=== PATIENT | male | born 1965 | race African-American/Black ===

== ENCOUNTER 2017-06-15 14:35 | Emergency (ER) | payer BC, OTHER ==
[2017-06-15] MEDS ORDERED: methylPREDNISolone Sod Succ/PF 125 MG/2 ML VIAL ONE (15:04)
[2017-06-15] MEDS ORDERED: Diazepam 5 MG TAB ONE (15:05)
[2017-06-15] MEDS ORDERED: Morphine 4 MG/ML VIAL ONE ×2 (15:05→16:22)
[2017-06-15] MEDS ORDERED: HYDROcodone/Acetaminophen 10/325 mg Tablet ONE (17:38)
== END 2017-06-15 18:02 | disposition home or self-care (01) ==
LOC: ERS 14:35
DX: M54.41 Lumbago with sciatica, right side (principal); I10 Essential (primary) hypertension; N40.0 Benign prostatic hyperplasia without lower urinary tract symptoms; Z79.899 Other long term (current) drug therapy
CPT/HCPCS: 96372; J2270; J2930

== ENCOUNTER 2017-08-28 09:47 | Outpatient (CLI) | payer OTHER ==
[2017-08-28] MEDS ORDERED: Gadobenate Dimeglumine 529 MG/1 ML (20ML VIAL) ONE (16:25)
== END 2017-08-28 09:48 | disposition home or self-care (01) ==
LOC: BICMRI 09:47
PROVIDERS: ATTEND Anesthesiology Pain Medicine
DX: M47.896 Other spondylosis, lumbar region (principal); M47.897 Other spondylosis, lumbosacral region; M51.36 Other intervertebral disc degeneration, lumbar region; M51.26 Other intervertebral disc displacement, lumbar region; M48.061 Spinal stenosis, lumbar region without neurogenic claudication
CPT/HCPCS: 72158; A9579

== ENCOUNTER 2017-08-29 09:47 | Outpatient (CLI) | payer OTHER | END 2017-08-29 09:48 | disposition home or self-care (01) | LOC: BICRAD 09:47 | PROVIDERS: ATTEND Anesthesiology Pain Medicine | DX: S32.009K Unspecified fracture of unspecified lumbar vertebra, subsequent encounter for fracture with nonunion (principal); M47.896 Other spondylosis, lumbar region; S32.10XK Unspecified fracture of sacrum, subsequent encounter for fracture with nonunion; M48.07 Spinal stenosis, lumbosacral region; M41.9 Scoliosis, unspecified | CPT/HCPCS: 72110 ==